=== PATIENT | male | born 1955 | race Caucasian/White ===

== ENCOUNTER → 2017-02-15 | Outpatient (CLI) | payer OTHER ==
--- NOTE | 2017-02-15 12:32 | Diagnostic Imaging Report ---
INDICATION: Fall with pelvic pain. Single AP view of the pelvis is obtained. FINDINGS: No acute fracture or dislocation is identified. No abnormal lytic or sclerotic focus is seen, and there is no radiopaque foreign body. IMPRESSION: No acute abnormality. Dictated by: Dictated on workstation # [id number]
--- NOTE | 2017-02-15 12:34 | Diagnostic Imaging Report ---
INDICATION: Back pain, fall. COMPARISON: None. FINDINGS: 3 views of lumbar column demonstrate mild diffuse degenerative changes throughout the disc spaces and facet joints. There is no osseous lesion or fracture. There is no traumatic malalignment. SI joints are symmetric. IMPRESSION: No traumatic malalignment or fracture. Dictated by: Dictated on workstation # [id number]
== END ==
LOC: RAD 12:09
PROVIDERS: ATTEND Nurse Practitioner Family
DX: S39.93XA Unspecified injury of pelvis, initial encounter (principal); S39.92XA Unspecified injury of lower back, initial encounter; W19.XXXA Unspecified fall, initial encounter; Y99.8 Other external cause status
CPT/HCPCS: 72100; 72170